=== PATIENT | male | born 1990 | race Hispanic/Latino ===

== ENCOUNTER 2017-07-19 16:44 | Emergency (ER) | payer SELFPAY | END 2017-07-19 17:22 | disposition home or self-care (01) | LOC: ERS 16:44 | DX: L60.0 Ingrowing nail (principal); R21 Rash and other nonspecific skin eruption | CPT/HCPCS: 99283 ==

== ENCOUNTER 2019-09-11 05:50 | Emergency (ER) | payer SELFPAY | END 2019-09-11 06:23 | disposition home or self-care (01) | LOC: ERS 05:50 | DX: R05 Cough (principal) | CPT/HCPCS: 99283 ==

== ENCOUNTER 2023-03-30 10:11 | Emergency (ER) | payer OTHER | END 2023-03-30 10:53 | disposition home or self-care (01) | LOC: ERS 10:11 | DX: S86.911A Strain of unspecified muscle(s) and tendon(s) at lower leg level, right leg, initial encounter (principal); X58.XXXA Exposure to other specified factors, initial encounter | CPT/HCPCS: 99283 ==